=== PATIENT | female | born 1995 ===

== ENCOUNTER 2022-11-04 13:28 | Outpatient (CLI) | payer BC, SELFPAY ==
[2022-11-04 14:16] LABS: Clue Cells >20% Clue Cells Seen (None Seen); Trichomonas No Trichomonas Seen (None Seen); Yeast No Yeast Seen (None Seen)
[2022-11-04 22:21] LABS: HIV 1/2/P24 Combo Screen* Negative (Negative)
[2022-11-04 22:54] LABS: GC DNA Amplified* NOT DETECTED (No Detected)
[2022-11-04 23:05] LABS: Chlamydia DNA Amplified* DETECTED (No Detected)
[2022-11-06 23:43] LABS: Rapid Plasma Reagin (RPR) Non Reactive (Non Reactive)
== END 2022-11-04 13:29 | disposition home or self-care (01) ==
PROVIDERS: PCP Family Medicine; Visit Provider Family Medicine
DX: Z11.3 Encounter for screening for infections with a predominantly sexual mode of transmission (principal); Z72.51 High risk heterosexual behavior
CPT/HCPCS: 86592; 86703; 87210; 87491; 87591